=== PATIENT | female | born 1980 | race Caucasian/White ===

== ENCOUNTER 2021-03-23 09:12 | Emergency (ER) | payer OTHER ==
[~2021-03-23] VITALS: Ht 167.6 cm; Wt 77.1 kg
--- OUTSIDE RECORDS SUMMARY | 2021-03-23 09:20 | XMS ---
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 Ruby has no Care Guidelines for this patient. Tona VISIT COUNT (12 MO.) 1 KATHERINE Edouard TOTAL 1 NOTE: Visits indicate total known visits. ED/C VISIT TRACKING (12 MO.) 03/23/2021 09:13 [facility] [place] TYPE: Emergency COMPLAINT: - N,V,D INPATIENT VISIT TRACKING (12 MO.) No inpatient visits to display in this time frame [email or web address]
--- NOTE | 2021-03-23 20:29 | EKG ---
[facility] [address] [facility] [facility] [place], [place] [address] Signed Atrial fibrillation with rapid ventricular response Abnormal ECG When compared with ECG of 23-MAR-2021 09:35, (Unconfirmed) No significant change was found Confirmed by HE PFEIFFER DO ([id number]) on 03/23/2021 8:29:07 PM Electronically Signed By: HE PFEIFFER DO 03/23/212028 PATIENT NAME: JESE ANAYA Electrocardiogram DATE OF : 82 PHYSICIAN: HE PFEIFFER DO REPORT #: [id number] REPORT IS CONFIDENTIAL AND NOT TO BE RELEASED WITHOUT AUTHORIZATION
--- NOTE | 2021-03-23 20:29 | EKG ---
[facility] [address] [facility] [place], [place] [address] Signed Atrial fibrillation with rapid ventricular response Abnormal ECG No previous ECGs available Confirmed by HE PFEIFFER DO ([id number]) on 03/23/2021 8:28:57 PM Electronically Signed By: HE PFEIFFER DO 03/23/212028 PATIENT NAME: JESE ANAYA ZEE Electrocardiogram DATE OF : 82 PHYSICIAN: HE PFEIFFER DO REPORT #: [id number] REPORT IS CONFIDENTIAL AND NOT TO BE RELEASED WITHOUT AUTHORIZATION
== END 2021-03-23 13:10 | disposition short-term general hospital (02) ==
LOC: ED 09:12
DX: I48.91 Unspecified atrial fibrillation (principal); R19.7 Diarrhea, unspecified; R11.10 Vomiting, unspecified; Z20.822 Contact with and (suspected) exposure to COVID-19
CPT/HCPCS: 80053; 81001; 83690; 84443; 84484; 84703; 85025; 85379; 85610; 85730; 93005; 93010; 96374; 96375; 96376; 99285-25; C9803; G0480; J1650; J2060; J2765; J7030; U0003

== ENCOUNTER 2021-05-06 17:04 | Emergency (ER) | payer MEDICAID ==
[~2021-05-06] VITALS: Ht 167.6 cm; Wt 77.1 kg
--- OUTSIDE RECORDS SUMMARY | 2021-05-06 17:12 | XMS ---
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 Ruby has no Care Guidelines for this patient. Tona VISIT COUNT (12 MO.) 2 KATHERINE Edouard TOTAL 2 NOTE: Visits indicate total known visits. ED/C VISIT TRACKING (12 MO.) 05/06/2021 17:05 [facility] [place] TYPE: Emergency COMPLAINT: - L INDEX FINGER LACERATION 03/23/2021 09:13 [facility] TYPE: Emergency COMPLAINT: - N,V,Paula DIAGNOSES: - Diarrhea, unspecified - Vomiting, unspecified - Palpitations - Unspecified atrial fibrillation INPATIENT VISIT TRACKING (12 MO.) 03/23/2021 14:24 [facility] TYPE: Intensive Care DIAGNOSES: - New onset atrial fibrillation - Unspecified atrial fibrillation [email or web address]
[2021-05-06] MEDS ORDERED: DILT-XR180 MG PO (17:54)
== END 2021-05-06 18:33 | disposition home or self-care (01) ==
LOC: ED 17:04
DX: S61.311A Laceration without foreign body of left index finger with damage to nail, initial encounter (principal); W26.9XXA Contact with unspecified sharp object(s), initial encounter; I48.91 Unspecified atrial fibrillation; Z79.899 Other long term (current) drug therapy
CPT/HCPCS: 12001; 90471; 90715; 99282-25

== ENCOUNTER 2024-04-18 18:16 | Emergency (ER) | payer OTHER ==
[~2024-04-18] VITALS: Ht 167.6 cm; Wt 78.6 kg
[~2024-04-18 18:16] MED LIST: DILT-XR180 MG PO; ONDANSETRON ODT8 MG SL
[2024-04-18] MEDS ORDERED: OXYCODONE/APAP 5/325 TAB PO ONE (19:00)
[2024-04-18] MEDS ORDERED: LIDOCAINE/RACEPINEP/TETRACAINE 3 ML SYR TOP ONE (19:00)
[2024-04-18] MEDS ORDERED: OXYCODONE/ACETAMINOPHEN 1 TAB HOME.PACK PO ONE (21:30)
[2024-04-18] MEDS ORDERED: AMOX TR-K CLV1 EAC1 PO (21:30)
[2024-04-18] MEDS ORDERED: AMOXICILLIN/CLAVULANATE K 875 MG HOME.PACK PO ONE (21:30)
[2024-04-18 21:40] VITALS: BP 143/90
== END 2024-04-18 21:40 | disposition home or self-care (01) ==
LOC: ED 18:16
DX: S01.25XA Open bite of nose, initial encounter (principal); Z79.899 Other long term (current) drug therapy; W54.0XXA Bitten by dog, initial encounter
CPT/HCPCS: 12052; 70160; 99283-25